=== PATIENT | male | born 1970 | race Caucasian/White ===

== ENCOUNTER 2021-01-01 06:03 | Emergency (ER) | payer MEDICARE ==
[~2021-01-01] VITALS: Ht 165.1 cm; Wt 99.5 kg
[2021-01-01] MEDS ORDERED: NS 1,000 ML IV ONE (06:30)
[2021-01-01] MEDS ORDERED: ACETAMINOPHEN 500 MG TAB PO ONE (06:35)
[2021-01-01] MEDS ORDERED: ONDANSETRON 4MG/2ML VIAL IV ONE (06:45)
[2021-01-01] MEDS ORDERED: MORPHINE 4 MG/ML 1ML VIAL/SYRINGE (J2270) IV ONE (06:45)
[2021-01-01 06:56] LABS: BASO % 0.2 % (0.0-1.0); EOS # 0.3 10^3/uL (0.0-0.5); HEMATOCRIT 45.6 % (42.0-52.0); HEMOGLOBIN 15.7 g/dl (13.5-17.5); LYMPH # 1.1 10^3/uL (1.5-5.0); LYMPH % 8.3 % (24.0-44.0); MEAN CORPUSCULAR HEMOGLOBIN 33.6 pg (27.0-33.0); MEAN CORPUSCULAR HGB CONC 34.4 g/dl (32.0-36.5); MEAN CORPUSCULAR VOLUME 97.6 fl (80.0-96.0); MONO # 0.9 10^3/uL (0.0-0.8); MONO % 7.1 % (2.0-8.0); NEUTROPHILS # 10.5 10^3/uL (1.5-8.5); NEUTROPHILS % 81.9 % (36.0-66.0); PLATELET COUNT, AUTOMATED 220 10^3/uL (150-450); RED BLOOD COUNT 4.67 10^6/uL (4.30-6.10); WHITE BLOOD COUNT 12.8 10^3/uL (4.0-10.0)
[2021-01-01 07:24] LABS: ALT/SGPT 37 U/L (12-78); BILIRUBIN,DIRECT 0.1 MG/DL (0.0-0.2); BILIRUBIN,TOTAL 0.6 MG/DL (0.2-1.0); BLOOD UREA NITROGEN 20 MG/DL (7-18); CARBON DIOXIDE LEVEL 27 MEQ/L (21-32); CHLORIDE LEVEL 104 MEQ/L (98-107); CREATININE FOR GFR 1.05 MG/DL (0.70-1.30); GLOMERULAR FILTRATION RATE > 60.0 (>56); GLUCOSE, FASTING 183 MG/DL (70-100); LIPASE 72 U/L (73-393); POTASSIUM SERUM 4.2 MEQ/L (3.5-5.1); SODIUM LEVEL 140 MEQ/L (136-145); TOTAL PROTEIN 7.5 GM/DL (6.4-8.2)
[2021-01-01] MEDS ORDERED: KETOROLAC 30 MG/ML 1ML VIAL IV ONE (08:00)
--- NOTE | 2021-01-01 08:33 | REPVR ---
PROCEDURE INFORMATION: Exam: CT Abdomen And Pelvis Without Contrast Exam date and time: 01/01/2021 6:42 AM Age: 51 years old Clinical indication: Abdominal pain; Flank; Left; Additional info: L flank, llq pain, RO renal stone TECHNIQUE: Imaging protocol: Computed tomography of the abdomen and pelvis without contrast. Radiation optimization: All CT scans at this facility use at least one of these dose optimization techniques: automated exposure control; mA and/or kV adjustment per patient size (includes targeted exams where dose is matched to clinical indication); or iterative reconstruction. COMPARISON: No relevant prior studies available. FINDINGS: Limitations: None. Lungs: Limited linear scarring atelectatic changes in the lungs. Heart: Borderline heart size. Liver: Enlarged low-density liver suggesting fatty infiltration without focal lesions or ductal dilatation. Correlation with LFT values recommended in nonemergent fashion. Gallbladder and bile ducts: Normal. No calcified stones. No ductal dilation. Pancreas: Normal. No ductal dilation. Spleen: The spleen is not enlarged. Adrenal glands: Normal. No mass. Kidneys and ureters: 2.5 mm intrarenal stone on the left without intrarenal stones on the right. The left kidney is enlarged in comparison to the left with perinephric and periureteral stranding as well as mild hydronephrosis and hydroureter. No ureteral stones. Stomach and bowel: No bowel obstruction. Sigmoid diverticulosis without acute diverticulitis. Appendix: No evidence of appendicitis. Intraperitoneal space: No free air or free fluid. Vasculature: Mild atherosclerotic changes of the aortoiliac system. Lymph nodes: No lymphadenopathy. Urinary bladder: The urinary bladder is collapsed with a 2 mm punctate density dependently within this bladder likely recently passed stone. Suspect this is responsible for the hydronephrosis and hydroureter. Reproductive: Calcifications in the nonenlarged prostate. Bones/joints: Degenerative changes without acute fracture. Bulging discs most pronounced at L4-L5 and L5-S1. Soft tissues: The inguinal rings are open with fat bilaterally. IMPRESSION: 1. No bowel obstruction or free air. 2. Findings suggestive fatty liver. 3. Intrarenal in urinary bladder stones on the left. No ureteral stones though there is likely residual hydronephrosis and hydroureter on the left secondary to the recently passed stone. 4. Atherosclerotic disease. 5. Sigmoid diverticulosis without acute diverticulitis. Electronically signed by: Nestor Hernandez On 01/01/2021 08:33:02 AM
[2021-01-01 09:01] VITALS: BP 136/78
[2021-01-01] MEDS ORDERED: FLOM0.4C39 PO (09:04)
[2021-01-01] MEDS ORDERED: KETO10TAB PO (09:04)
== END 2021-01-01 09:12 | disposition home or self-care (01) ==
LOC: M ED 06:03
DX: N20.0 Calculus of kidney (principal); R16.0 Hepatomegaly, not elsewhere classified; F17.210 Nicotine dependence, cigarettes, uncomplicated
CPT/HCPCS: 36415; 74176; 80048; 80076; 81001; 83690; 85025; 87086; 96361; 96374; 96375; 99284; J1885; J2270; J2405